=== PATIENT | female | born 1990 ===

== ENCOUNTER 2024-07-09 20:12 | Emergency (ER) | payer OTHER ==
[~2024-07-09] VITALS: Ht 162.6 cm; Wt 74.4 kg
[2024-07-09] MEDS ORDERED: DEXT10TA7 PO (20:29)
[2024-07-09] MEDS ORDERED: QUET100T PO (20:29)
[2024-07-09 21:43] LABS: *URINE HCG, QUAL NEGATIVE (NEGATIVE)
[2024-07-09] MEDS ORDERED: KETOROLAC TROMETHAMINE 30 MG INJ ONE (21:45)
[2024-07-09 21:48] LABS: *AMPHETAMINE, URINE POSITIVE (NEGATIVE); *BARBITURATE, URINE NEGATIVE (NEGATIVE); *BENZODIAZEPINE, URINE NEGATIVE (NEGATIVE); *CANNABINOID, URINE NEGATIVE (NEGATIVE); *COCCAINE, URINE NEGATIVE (NEGATIVE); *OPIATE, URINE NEGATIVE (NEGATIVE); *PHENCYCLIDINE SCREEN,URINE NEGATIVE (NEGATIVE); FENTANYL, URINE NEGATIVE (NEGATIVE)
[2024-07-09] MEDS: KETOROLAC TROMETHAMINE 30 MG INJ IM ONE (21:48)
[2024-07-09 22:35] VITALS: O2SAT 98
== END 2024-07-09 23:40 | disposition left against medical advice (07) ==
LOC: ER 20:22
DX: S60.222A Contusion of left hand, initial encounter (principal); M25.532 Pain in left wrist; R51.9 Headache, unspecified; M54.2 Cervicalgia; V03.10XA Pedestrian on foot injured in collision with car, pick-up truck or van in traffic accident, initial encounter; Y93.01 Activity, walking, marching and hiking; Y92.488 Other paved roadways as the place of occurrence of the external cause; Y99.8 Other external cause status
CPT/HCPCS: 99285; 70450; 84703; 73110; 72125; 96372; 80307; J1885; A4606; A4663